=== PATIENT | male | born 1995 | race Two or more races ===

== ENCOUNTER 2024-09-07 03:19 | Emergency (ER) | payer MEDICAID, OTHER ==
[~2024-09-07] VITALS: Ht 170.2 cm; Wt 67.2 kg
--- NOTE | 2024-09-07 04:10 | ED.PDOC ---
History of Present Illness HPI Comments 28 y/o M, with a Hx of ESRD w/HD /W/ and HTN, presents with c/o nausea, vomiting, and abdominal pain for 1x day, today. Patient endorses on onset of symptoms, yesterday, morning that has been persisting since. He comments on pain being secondary to excessive vomiting, being unable to tolerate any food or l iquids before vomiting, immediately, and suspecting on consuming spoiled food after noticing his girlfriend becoming ill, initially, as well, before recovering on her own. Patient admits to completing his entire dialysis session on 09/03/24 and 09/06/24 without complications and his teacher education instructor being Tonya Salgado. He denies having any diarrhea, fever, chills, urinary symptoms or other associated symptoms or modifiers at this time. Upon arrival to ED, patient was found with an elevated blood pressure value of 201/130 amidst endorsement of medication compliancy history. Chief Complaint: Nausea/Vomiting Time Seen by MD: 03:50 Reviewed Notes: Nurses Notes, Medications, Allergies Allergies: Coded Allergies: NO KNOWN ALLERGIES (Unverified , 09/07/24) Information Source: Patient Mode of Arrival: Ambulatory Severity: Moderate Timing: Days Duration: Since onset Prehospital treatment: None Past Medical History PAST MEDICAL HISTORY: ESRD (w/HD on //), HTN Surgical History (Other): left AV fistula Family History Family History: Unknown Social History Smoker: Non-Smoker Alcohol: Denies ETOH Use Drugs: Denies Drug Use Lives In: Home Gastrointestinal: reports: abdominal pain, nausea, vomiting All Other Systems: Reviewed and Negative (negative unless otherwise stated above or in HPI) Physical Exam General Appearance: No Apparent Distress, Normal HEENT: Normal ENT Inspection, Pharynx Normal, TMs Normal Neck: Full Range of Motion, Non-Tender, Normal, Normal Inspection Respiratory: Chest Non-Tender, Lungs Clear, No Accessory Muscle Use, No Respiratory Distress, Normal Breath Sounds Cardiovascular: No Edema, No JVD, No Murmur, No Gallop, Normal Peripheral Pulses, Regular Rate/Rhythm Breast Exam: Deferred Gastrointestinal: No Organomegaly, Non Tender, No Pulsatile Mass, Normal Bowel Sounds, Soft Genitalia: Deferred Pelvic: Deferred Rectal: Deferred Extremities: No calf tenderness, Normal capillary refill, Normal inspection, Normal range of motion, Non-tender, No pedal edema, Other (AV fistula in left arm) Musculoskeletal : Apperance: Normal Neurologic: Alert, supervising chef II-XII nml as Tested, No Motor Deficits, Normal Affect, Normal Mood, No Sensory Deficits Cerebellar Function: Normal Reflexes: Normal Skin: Dry, Normal Color, Warm Lymphatic: No Adenopathy Was a procedure done? Was a procedure done?: No Differential Dx Considerations may include: gastritis, gastroenteritis, spoiled food, viral syndrome, HTN emergency, HTN essential X-Ray, Labs, Meds, VS Vital Signs Date Time Temp Pulse Resp B/P (MAP) Pulse Ox O2 Delivery O2 Flow Rate FiO2 09/07/24 04:34 143/107 09/07/24 04:12 98.4 76 18 143/107 (119) 97 98.4 09/07/24 04:12 76 18 97 Room Air* 0 21 09/07/24 03:41 98.8 90 18 201/130 (153) 98 Lab Test 09/07/24 04:16 09/07/24 04:14 Range/Units White Blood Count 7.6 4.4-10.8 10^3/uL Red Blood Count 4.24 L 4.5-5.90 10^6/uL Hemoglobin 13.4 L 13.5-17.5 g/dL Hematocrit 39.6 L 41.0-53.0 % Mean Corpuscular Volume 93.5 80.0-100.0 fL Mean Corpuscular Hemoglobin 31.5 28.0-32.0 pg Mean Corpuscular Hemoglobin Concent 33.7 32.0-36.0 g/dL Red Cell Distribution Width 16.4 H 11.8-14.3 % Platelet Count 158 140-450 10^3/uL Mean Platelet Volume 7.5 6.9-10.8 fL Neutrophils (%) (Auto) 90.9 H 37.0-80.0 % Lymphocytes (%) (Auto) 3.9 L 10.0-50.0 % Monocytes (%) (Auto) 2.6 0.0-12.0 % Eosinophils (%) (Auto) 2.6 0.0-7.0 % Basophils (%) (Auto) 0.0 0.0-2.0 % Neutrophils # (Auto) 6.9 1.6-8.6 10 ^3/uL Lymphocytes # (Auto) 0.3 L 0.4-5.4 10 ^3/uL Monocytes # (Auto) 0.2 0-1.3 10 ^3/uL Eosinophils # (Auto) 0.2 0-0.8 10 ^3/uL Basophils # (Auto) 0 0-0.2 10 ^3/uL Nucleated Red Blood Cells 0.1 % Sodium Level 139 136-145 mmol/L Potassium Level 4.7 3.5-5.1 mmol/L Chloride Level 97 L 98-107 mmol/L Carbon Dioxide Level 32 H 20-31 mmol/L Anion Gap 10 5-15 Blood Urea Nitrogen 41 H 9-23 mg/dL Creatinine 9.81 H 0.700-1.30 mg/dL Glomerular Filtration Rate Calc 7 >90 mL/min BUN/Creatinine Ratio 4.2 L 10.0-20.0 Serum Glucose 106 74-106 mg/dL Calcium Level 9.6 8.7-10.4 mg/dL Total Bilirubin 0.6 0.2-1.0 mg/dL Aspartate Amino Transferase (AST) 15 13-40 U/L Alanine Aminotransferase (ALT) 13 7-40 U/L Alkaline Phosphatase 114 46-116 U/L Total Protein 6.7 5.7-8.2 g/dL Albumin 4.7 3.2-4.8 g/dL B-Type Natriuretic Peptide 959.24 0-100 pg/mL Current Medications Medications (Trade) Dose Ordered Sig/Lb Route Start Time Stop Time Status Last Admin Ondansetron HCl (Zofran) 4 mg ONCE ONCE IV 09/07/24 04:15 09/07/24 04:16 DC 09/07/24 04:35 Acetaminophen (Tylenol Tablet) 650 mg ONCE ONCE PO 09/07/24 04:15 09/07/24 04:16 DC 09/07/24 04:38 Famotidine (Pepcid Injection) 20 mg ONCE ONCE IV 09/07/24 04:15 09/07/24 04:16 DC 09/07/24 04:35 Hydralazine HCl (Apresoline Injection) 20 mg ONCE ONCE IV 09/07/24 04:15 09/07/24 04:16 DC 09/07/24 04:[address] [address] Ph: [phone] DIAGNOSTIC IMAGING Diagnostic Imaging Report : [id number] Signed PATIENT: UBALDO CHAND ACCT: [id number] UNIT: [id number] : 1995 LOC: ER ROOM / BED: / AGE / SEX: 28 / M ADM STATUS: REG ER SERVICE 1 ORDERING PHYSICIAN: SALLIE GUTHRIE MD PROCEDURE(s): CXRP - CHEST PORTABLE REASON: n/v, sob ORDER NUMBER(s): [id number], ACCESSION NUMBER(s): [id number] EXAM: XY CHEST PORTABLE Indication: n/v, sob Technique: Single frontal view of the chest was obtained Comparison: None FINDINGS: Lines and Tubes: None Lungs: No focal consolidation. Pleura: No effusion. No pneumothorax. Cardiomediastinal contours: Unremarkable Bones: No acute osseous abnormality. IMPRESSION: No acute cardiopulmonary disease. ATED BY: GINGER CONSTANTINO MD DICTATED DATE/TIME: 09/07/24439 SIGNED BY: GINGER CONSTANTINO MD SIGNED DATE/TIME: 09/07/24439 CC: Time of 1ST Reevaluation: 04:20 Reevaluation 1ST: Unchanged Patient Education/Counseling: Diagnosis, Treatment Family Education/Counseling: No Family Present Additional Information The following tests were ordered, and results were reviewed by me: CXR, CMP, CBC, BNP I reviewed and agreed with the following test results read by other providers: CXR I discussed treatment and results with medical personnel Departure 1 Departure Time of Disposition: 05:27 (Patient with hypertensive urgency, tactile nausea and vomiting generalized weakness. Patient reports having full dialysis. We will admit patient for further workup) Impression: Primary Impression: Projectile vomiting with nausea Additional Impressions: Hypertensive urgency Generalized weakness Hemodialysis patient Disposition: ADMITTED INPATIENT Admit to: Med Surg Condition: Serious Critical Care Note Critical Care Time?: No Stability Stability form required: No Heart Score Heart Score: Heart Score Response (Comments) Value History N/A 0 EKG N/A 0 Age N/A 0 Risk Factors N/A 0 Troponin N/A 0 Total 0 I personally scribed for SALLIE GUTHRIE MD ([email or web address]) on 09/07/24 at 04:10. Electronically submitted by Gabe Abad ([email or web address]). I personally scribed for SALLIE GUTHRIE MD ([email or web address]) on 09/07/24 at 04:11. Electronically submitted by Gabe Abad ([email or web address]). I personally scribed for SALLIE GUTHRIE MD ([email or web address]) on 09/07/24 at 05:15. Electronically submitted by Gabe Abad ([email or web address]). SALLIE GUTHRIE MD Sep 07, 2024 04:10
[2024-09-07 04:12] VITALS: PULSE 76; RESP 18; O2SAT 97
[2024-09-07 04:29] LABS: Basophils # (auto) 0 10 ^3/uL (0-0.2); Eosinophils # (auto) 0.2 10 ^3/uL (0-0.8); Eosinophils % (auto) 2.6 % (0.0-7.0); Hematocrit 39.6 % (41.0-53.0); Hemoglobin 13.4 g/dL (13.5-17.5); Lymphocytes # (auto) 0.3 10 ^3/uL (0.4-5.4); Lymphocytes % (auto) 3.9 % (10.0-50.0); Mean Corpuscular Hemoglobin 31.5 pg (28.0-32.0); Mean Corpuscular Hgb Conc. 33.7 g/dL (32.0-36.0); Mean Corpuscular Volume 93.5 fL (80.0-100.0); Monocytes # (auto) 0.2 10 ^3/uL (0-1.3); Monocytes % (auto) 2.6 % (0.0-12.0); Neutrophils # (auto) 6.9 10 ^3/uL (1.6-8.6); Neutrophils % (auto) 90.9 % (37.0-80.0); Nucleated Red Blood Cells % 0.1 %; Platelet Count (auto) 158 10^3/uL (140-450); Red Blood Cells 4.24 10^6/uL (4.5-5.90); Red Cell Distribution Width 16.4 % (11.8-14.3); White Blood Cell 7.6 10^3/uL (4.4-10.8)
[2024-09-07] MEDS: hydrALAZINE HCL 20 MG/ML VL IV ONE (04:34)
[2024-09-07] MEDS: ONDANSETRON HCL 4 MG/2 ML VIAL IV ONE (04:35)
[2024-09-07] MEDS: FAMOTIDINE (10MG/ML) 2ML VL IV ONE (04:35)
[2024-09-07] MEDS: ACETAMINOPHEN 325 MG TAB PO ONE (04:38)
--- NOTE | 2024-09-07 04:42 | DVH ---
EXAM: XY CHEST PORTABLE Indication: n/v, sob Technique: Single frontal view of the chest was obtained Comparison: None FINDINGS: Lines and Tubes: None Lungs: No focal consolidation. Pleura: No effusion. No pneumothorax. Cardiomediastinal contours: Unremarkable Bones: No acute osseous abnormality. IMPRESSION: No acute cardiopulmonary disease.
[2024-09-07 04:45] LABS: Alanine Aminotransferase 13 U/L (7-40); Albumin 4.7 g/dL (3.2-4.8); Alkaline Phosphatase 114 U/L (46-116); Anion Gap 10 (5-15); Aspartate Aminotransferase 15 U/L (13-40); BUN/Creatinine Ratio 4.2 (10.0-20.0); Bilirubin, Total 0.6 mg/dL (0.2-1.0); Calcium 9.6 mg/dL (8.7-10.4); Glucose 106 mg/dL (74-106); Potassium 4.7 mmol/L (3.5-5.1); Sodium 139 mmol/L (136-145); Total Protein 6.7 g/dL (5.7-8.2)
[2024-09-07 04:49] LABS: Blood Urea Nitrogen 41 mg/dL (9-23); Carbon Dioxide 32 mmol/L (20-31); Chloride 97 mmol/L (98-107)
[2024-09-07 07:31] VITALS: BP 152/96; PULSE 76; RESP 18; TEMP 98.1; O2SAT 98
== END 2024-09-07 07:46 | disposition left against medical advice (07) ==
LOC: ER 03:19
DX: R11.12 Projectile vomiting (principal); R11.0 Nausea; I16.0 Hypertensive urgency; I12.0 Hypertensive chronic kidney disease with stage 5 chronic kidney disease or end stage renal disease; N18.6 End stage renal disease; Z99.2 Dependence on renal dialysis
CPT/HCPCS: 36415; 71045; 80053; 83880; 85025; 96374; 96375; 99284; J0360; J2405; J3490

== ENCOUNTER 2024-09-11 08:21 | Inpatient (IN) | payer MEDICAID ==
[~2024-09-11] VITALS: Ht 170.2 cm; Wt 67.0 kg
--- NOTE | 2024-09-11 08:49 | ED.PDOC ---
General HPI Comments 28 year old male presents to the ED with chief complaint of penile bleeding. Patient reports that he had finished dialysis this morning when he had noticed blood coming out of his penis afterwards at home. Patient relays that due to his history of ESRD, he is unable to produce urine. Patient states he has some discomfort to his penis as well. Patient notes that he has also been experiencing unrelated sore throat for the past few days. Patient reports that he had a similar episode of penile bleeding 2 months ago, but was much milder. Patient denies any urine output, abdominal pain, fever, chills, or testicular swelling. Chief Complaint: Penile Problem Time Seen by MD: 08:49 Reviewed notes: Nurses Notes, Medications, Allergies Allergies: Coded Allergies: NO KNOWN ALLERGIES (Unverified , 09/07/24) Information Source: Patient Mode of Arrival: Ambulatory Severity: Moderate Inability to void: Complete Timing: Hours Duration: Since onset Prehospital treatment: None Onset: Spontaneous Symptoms: Hematuria History of: Other (ESRD) Location: None Penile discharge: None Modifying factors: None associated signs and symptoms: Hematuria Past Medical History PAST MEDICAL HISTORY: ESRD, HTN Surgical History: Denies all surgeries Family History Family History: Unknown Social History Smoker: Non-Smoker Alcohol: Denies ETOH Use Drugs: Denies Drug Use Lives In: Home Constitutional: denies: chills, diaphoresis, fatigue, fever, malaise, sweats, weakness, others EENTM: denies: blurred vision, double vision, ear bleeding, ear discharge, ear drainage, ear pain, ear ringing, eye pain, eye redness, hearing loss, mouth pain, mouth swelling, nasal discharge, nose bleeding, nose congestion, nose pain, photophobia, tearing, throat pain, throat swelling, voice changes, others Respiratory: denies: cough, hemoptysis, orthopnea, SOB at rest, shortness of breath, SOB with excertion, stridor, wheezing, others Cardiovascular: denies: chest pain, dizzy spells, diaphoresis, Dyspnea on exertion, edema, irregular heart beat, left arm pain, lightheadedness, palpitations, PND, syncope, others Gastrointestinal: denies: abdomen distended, abdominal pain, blood streaked bowels, constipated, diarrhea, dysphagia, difficulty swallowing, hematemesis, melena, nausea, poor appetite, poor fluid intake, rectal bleeding, rectal pain, vomiting, others Genitourinary: reports: hematuria, pain; denies: burning, dysuria, flank pain, frequency, incontinence, penile discharge, penile sore, testicle pain, testicle swelling, urgency, others Neurological: denies: dizziness, fainting, headache, left sided numbness, left sided weakness, numbness, paresthesia, pre-existing deficit, right sided numbness, right sided weakness, seizure, speech problems, tingling, tremors, weakness, others Musculoskeletal: denies: back pain, gout, joint pain, joint swelling, muscle pain, muscle stiffness, neck pain, others Integumetry: denies: bruises, change in color, change in hair/nails, dryness, laceration, lesions, lumps, rash, wounds, others Allergic/Immunocompromised: denies: Difficulty Healing, Frequent Infections, Hives, Itching, others Hematologic/Lymphatic: denies: anemia, blood clots, easy bleeding, easy bruising, swollen glands, others Endocrine: denies: excessive hunger, excessive sweating, excessive thirst, excessive urination, flushing, intolerance to cold, intolerance to heat, unexplained weight gain, unexplained weight loss, others Psychiatric: denies: anxiety, bipolar disorder, depression, hopeless, panic disorder, schizophrenia, sleepless, suicidal, others All Other Systems: Reviewed and Negative Physical Exam General Appearance: No Apparent Distress, Normal HEENT: Normal ENT Inspection, PERRL/EOMI, Pharyngeal Erythema Neck: Full Range of Motion, Lymphadenopathy (R), Lymphadenopathy (L), Non- Tender, Normal, Normal Inspection Respiratory: Chest Non-Tender, Lungs Clear, No Accessory Muscle Use, No Respiratory Distress, Normal Breath Sounds Cardiovascular: No Edema, No JVD, No Murmur, No Gallop, Normal Peripheral P ulses, Regular Rate/Rhythm Breast Exam: Deferred Gastrointestinal: No Organomegaly, No Pulsatile Mass, Normal Bowel Sounds, Soft, Suprapubic, Tenderness Genitalia: Deferred Pelvic: Deferred Rectal: Deferred Extremities: No calf tenderness, Normal capillary refill, Normal inspection, Normal range of motion, Non-tender, No pedal edema Musculoskeletal : Apperance: Normal Neurologic: Alert, rn wellness II-XII nml as Tested, No Motor Deficits, Normal Affect, Normal Mood, No Sensory Deficits Cerebellar Function: Normal Reflexes: Normal Skin: Dry, Normal Color, Warm Peripheral Pulses: 1+ carotid (R), 1+ carotid (L) Lymphatic: No Adenopathy Was a procedure done? Was a procedure done?: No Differential Diagnosis Kidney stone (Female): N/A Kidney stone (Male): Pyelonephritis, Renal failure, Renal infarction, Urinary tract infection Penile/Scrotal: Prostatitis, Urolithiasis Urinary Problem (Male): Bladder Outlet, Prostatitis, Plelonephritis, Renal Failure, Urethritis, Urinary Retention, Urolithiasis, UTI Urinary Problem (Female): N/A X-Ray, Labs, Meds, VS Vital Signs Date Time Temp Pulse Resp B/P (MAP) Pulse Ox O2 Delivery O2 Flow Rate FiO2 09/11/24 11:11 190/117 09/11/24 09:11 82 16 98 Room Air* 0 21 09/11/24 09:10 82 18 98 Room Air 09/11/24 09:10 98.0 82 18 164/91 (115) 98 98.0 09/11/24 08:30 98.0 97 18 169/107 (127) 97 166/102 (123) Lab Test 09/11/24 09:47 09/11/24 09:27 Range/Units White Blood Count 3.5 #L 4.4-10.8 10^3/uL Red Blood Count 4.35 L 4.5-5.90 10^6/uL Hemoglobin 13.4 L 13.5-17.5 g/dL Hematocrit 40.5 L 41.0-53.0 % Mean Corpuscular Volume 93.1 80.0-100.0 fL Mean Corpuscular Hemoglobin 30.8 28.0-32.0 pg Mean Corpuscular Hemoglobin Concent 33.1 32.0-36.0 g/dL Red Cell Distribution Width 15.9 H 11.8-14.3 % Platelet Count 150 140-450 10^3/uL Mean Platelet Volume 7.8 6.9-10.8 fL Neutrophils (%) (Auto) 53.6 37.0-80.0 % Lymphocytes (%) (Auto) 23.7 10.0-50.0 % Monocytes (%) (Auto) 12.8 H 0.0-12.0 % Eosinophils (%) (Auto) 9.0 H 0.0-7.0 % Basophils (%) (Auto) 0.9 0.0-2.0 % Neutrophils # (Auto) 1.9 1.6-8.6 10 ^3/uL Lymphocytes # (Auto) 0.8 0.4-5.4 10 ^3/uL Monocytes # (Auto) 0.4 0-1.3 10 ^3/uL Eosinophils # (Auto) 0.3 0-0.8 10 ^3/uL Basophils # (Auto) 0 0-0.2 10 ^3/uL Nucleated Red Blood Cells 0.1 % Sodium Level 138 136-145 mmol/L Potassium Level 3.8 3.5-5.1 mmol/L Chloride Level 95 L 98-107 mmol/L Carbon Dioxide Level 32 H 20-31 mmol/L Anion Gap 11 5-15 Blood Urea Nitrogen 24 H 9-23 mg/dL Creatinine 7.03 #H 0.700-1.30 mg/dL Glomerular Filtration Rate Calc 10 >90 mL/min BUN/Creatinine Ratio 3.4 L 10.0-20.0 Serum Glucose 135 H 74-106 mg/dL Calcium Level 9.8 8.7-10.4 mg/dL Magnesium Level 2.4 1.6-2.6 mg/dL Group A Streptococcus Rapid Negative Current Medications Medications (Trade) Dose Ordered Sig/Lb Route Start Time Stop Time Status Last Admin Sodium Chloride 1,000 ml @ 150 mls/hr Q6H40M ONCE IV 09/11/24 09:30 09/11/24 16:09 09/11/24 09:39 Acetaminophen (Tylenol Tablet) 650 mg ONCE ONCE PO 09/11/24 11:00 09/11/24 11:01 DC 09/11/24 10:56 Clonidine HCl (Catapres Tablet) 0.1 mg ONCE ONCE PO 09/11/24 11:15 09/11/24 11:16 DC 09/11/24 11:11 Ceftriaxone Sodium 50 ml @ 100 mls/hr ONCE ONCE IV 09/11/24 12:30 09/11/24 12:59 DC 09/11/24 12:30 Chest XR: FINDINGS: LUNGS AND PLEURAL SPACES: Unremarkable. No consolidation. No pneumothorax. HEART: Unremarkable. No cardiomegaly. MEDIASTINUM: Unremarkable. Normal mediastinal contour. BONES/JOINTS: Unremarkable. No acute fracture. OTHER FINDINGS: . None. . IMPRESSION: No acute cardiopulmonary process. CT Abd/Pel W/ IV: Findings: Lung Bases: No acute or significant lung base finding. Normal heart size. No pleural or pericardial effusion. Liver: The liver is normal in size. No focal lesions. Normal hepatic vascular enhancement. Gallbladder and biliary Tree: Unremarkable Spleen: Unremarkable Pancreas: The pancreas is normal in appearance without focal lesions or abnormal enhancement. Adrenal Glands: Unremarkable Kidneys: Severe atrophic changes of the kidneys bilaterally. Innumerable small cysts, chronic in nature of both kidneys. 4 cm left upper pole renal cyst. Bladder: Unremarkable Bowel: Small hiatal hernia. Small bowel and colon are normal in caliber and distribution. The appendix is not visualized; however, no secondary findings of acute appendicitis identified. Stomach distended with fluid. Ascites: Absent Lymphadenopathy: No mesenteric, retroperitoneal or periportal lymphadenopathy. Abdominal wall and Mesentery: Edematous changes in the subcutaneous soft tissues and mesenteric fat consistent with probable renal failure. Vasculature: The visualized abdominal aorta is normal in size and caliber. Abdominal and pelvic vessels demonstrate normal enhancement. Mild vascular calcification the order without aneurysm. Pelvic Organs: Unremarkable Musculoskeletal: No aggressive focal bony lesions, acute fractures or dislocation. IMPRESSION: 1. Severe atrophic changes both kidneys with innumerable small cysts bilaterally. 2. Vascular calcification minimal in degree which is quite unusual at this young age. 3. Edematous changes of the subcutaneous soft tissues and mesenteric fat suggestive of marked renal impairment. X-Ray, Labs, Meds, VS Comment Course in the emergency department eventful patient was at the dialysis center and started having gross hematuria usually does not have any urine Blood pressure was also uncontrolled Chest x-ray is normal CT abdomen and pelvis shows atrophic kidneys hiatal hernia no bladder pathology and no prostate pathology CBC normal BNP GFR at 10 Magnesium 2.4 Strep pharyngitis negative Patient will be admitted for further care Consultation with the Urology Patient eloped we will try to bring him back patient is back and he will be admitted Images Reviewed?: Images reviewed and evaluated by me Time of 1ST Reevaluation: 09:49 Reevaluation 1ST: Unchanged Time of 2ND Reevaluation: 12:09 Reevaluation 2ND: Unchanged Patient Education/Counseling: Diagnosis, Treatment, Prognosis Family Education/Counseling: Diagnosis, Treatment, Prognosis, No Family Present Departure 1 Departure Time of Disposition: 12:12 Impression: Primary Impression: End stage renal failure on dialysis Additional Impressions: Uncontrolled hypertension Gross hematuria Pharyngitis Ruled Out: Bladder carcinoma Disposition: ADMITTED INPATIENT Admit to: Med Surg Condition: Fair Critical Care Note Critical Care Time?: No Stability Stability form required: Yes Unstable for transfer: Requires medication (Requires Med for stabilization) Heart Score Heart Score: Heart Score Response (Comments) Value History Slightly Suspicious 0 EKG N/A 0 Age <45 0 Risk Factors 1 or 2 risk factors 1 Troponin N/A 0 Total 1 I personally scribed for RICKI SANTOYO MD ([email or web address]) on 09/11/24 at 08:49. Electronically submitted by Bandar Sullivan ([email or web address]). I personally scribed for RICKI SANTOYO MD ([email or web address]) on 09/11/24 at 09:25. Electronically submitted by Bandar Sullivan ([email or web address]). I personally scribed for RICKI SANTOYO MD ([email or web address]) on 09/11/24 at 10:38. Electronically submitted by Bandar Sullivan ([email or web address]). I personally scribed for RICKI SANTOYO MD ([email or web address]) on 09/11/24 at 10:43. Electronically submitted by Bandar Sullivan ([email or web address]). RICKI SANTOYO MD Sep 11, 2024 08:49
[2024-09-11 09:11] VITALS: PULSE 82; RESP 16; O2SAT 98
[2024-09-11] MEDS: SODIUM CHLORIDE 0.9% 250 ML IV ONE (09:38)
[2024-09-11] MEDS: SODIUM CHLORIDE 0.9% 1,000 ML IV ONE (09:39)
[2024-09-11] MEDS: IOHEXOL 300 MG/ML 100ML BOTTLE IJ ONE (10:16)
--- NOTE | 2024-09-11 10:34 | DVH ---
EXAM: XR Chest, 2 Views CLINICAL INDICATION: Gross hematuria dialysis patient check prostate and bladder TECHNIQUE: Frontal and lateral views of the chest. COMPARISON: None FINDINGS: LUNGS AND PLEURAL SPACES: Unremarkable. No consolidation. No pneumothorax. HEART: Unremarkable. No cardiomegaly. MEDIASTINUM: Unremarkable. Normal mediastinal contour. BONES/JOINTS: Unremarkable. No acute fracture. OTHER FINDINGS: . None. . IMPRESSION: No acute cardiopulmonary process.
[2024-09-11 10:37] LABS: Basophils # (auto) 0 10 ^3/uL (0-0.2); Basophils % (auto) 0.9 % (0.0-2.0); Eosinophils # (auto) 0.3 10 ^3/uL (0-0.8); Hematocrit 40.5 % (41.0-53.0); Hemoglobin 13.4 g/dL (13.5-17.5); Lymphocytes # (auto) 0.8 10 ^3/uL (0.4-5.4); Lymphocytes % (auto) 23.7 % (10.0-50.0); Mean Corpuscular Hemoglobin 30.8 pg (28.0-32.0); Mean Corpuscular Hgb Conc. 33.1 g/dL (32.0-36.0); Mean Corpuscular Volume 93.1 fL (80.0-100.0); Monocytes # (auto) 0.4 10 ^3/uL (0-1.3); Monocytes % (auto) 12.8 % (0.0-12.0); Neutrophils # (auto) 1.9 10 ^3/uL (1.6-8.6); Neutrophils % (auto) 53.6 % (37.0-80.0); Nucleated Red Blood Cells % 0.1 %; Platelet Count (auto) 150 10^3/uL (140-450); Red Blood Cells 4.35 10^6/uL (4.5-5.90); Red Cell Distribution Width 15.9 % (11.8-14.3); White Blood Cell 3.5 10^3/uL (4.4-10.8)
--- NOTE | 2024-09-11 10:39 | DVH ---
Exam: CT CT AB PEL WITH IV CON ONLY History: Gross hematuria on an in uric patient possible bladder or pr COMPARISON: None Technique: Multidetector spiral CT of the abdomen and pelvis was performed from lung bases to pubic s ymphysis. Intravenous contrast was administered during this examination. Portal venous imaging was obtained. Axial, coronal and sagittal multiplanar reformats were performed by the technologist on a separate workstation. Radiation Dose : 1. Abdomen/Pelvis: CTDIvol [CTDIvol]mGy, DLP 369.61 mGy*cm. CONTRAST: Type of contrast: Omnipaque 300 Contrast injected: 100 ml Contrast ingested: 0 ml Findings: Lung Bases: No acute or significant lung base finding. Normal heart size. No pleural or pericardial effusion. Liver: The liver is normal in size. No focal lesions. Normal hepatic vascular enhancement. Gallbladder and biliary Tree: Unremarkable Spleen: Unremarkable Pancreas: The pancreas is normal in appearance without focal lesions or abnormal enhancement. Adrenal Glands: Unremarkable Kidneys: Severe atrophic changes of the kidneys bilaterally. Innumerable small cysts, chronic in na ture of both kidneys. 4 cm left upper pole renal cyst. Bladder: Unremarkable Bowel: Small hiatal hernia. Small bowel and colon are normal in caliber and distribution. The append ix is not visualized; however, no secondary findings of acute appendicitis identified. Stomach disten ded with fluid. Ascites: Absent Lymphadenopathy: No mesenteric, retroperitoneal or periportal lymphadenopathy. Abdominal wall and Mesentery: Edematous changes in the subcutaneous soft tissues and mesenteric fat c onsistent with probable renal failure. Vasculature: The visualized abdominal aorta is normal in size and caliber. Abdominal and pelvic vess els demonstrate normal enhancement. Mild vascular calcification the order without aneurysm. Pelvic Organs: Unremarkable Musculoskeletal: No aggressive focal bony lesions, acute fractures or dislocation. IMPRESSION: 1. Severe atrophic changes both kidneys with innumerable small cysts bilaterally. 2. Vascular calcification minimal in degree which is quite unusual at this young age. 3. Edematous changes of the subcutaneous soft tissues and mesenteric fat suggestive of marked renal i mpairment. Radiation optimization: All CT scans at this facility use at least one of these dose optimization jack hniques: Automated exposure control mA and/or kV adjustment per patient size (includes targeted exams where dose is matched to clinical indication) or iterative reconstruction.
[2024-09-11 10:42] LABS: Rapid Strep A Screen-Throat Negative
[2024-09-11 10:53] LABS: Potassium 3.8 mmol/L (3.5-5.1); Sodium 138 mmol/L (136-145)
[2024-09-11 10:54] LABS: Anion Gap 11 (5-15); Calcium 9.8 mg/dL (8.7-10.4)
[2024-09-11] MEDS: ACETAMINOPHEN 325 MG TAB PO ONE (10:56)
[2024-09-11 10:57] LABS: Carbon Dioxide 32 mmol/L (20-31); Chloride 95 mmol/L (98-107)
[2024-09-11 10:59] LABS: BUN/Creatinine Ratio 3.4 (10.0-20.0)
[2024-09-11 11:00] LABS: Blood Urea Nitrogen 24 mg/dL (9-23); Glucose 135 mg/dL (74-106); Magnesium 2.4 mg/dL (1.6-2.6)
[2024-09-11] MEDS: cloNIDine HCL 0.1 MG TAB PO ONE (11:11)
[2024-09-11] MEDS: cefTRIAXone 1GM/50ML D5W 50 ML IV ONE (12:30)
[2024-09-11] MEDS ORDERED: DOCUSATE SOD 100 MG CAP PO PRN (13:00)
[2024-09-11] MEDS ORDERED: hydrALAZINE HCL 20 MG/ML VL IV PRN ×2 (13:00→15:00)
[2024-09-11] MEDS ORDERED: HYDROcodone-ACET 5/325MG TAB PO PRN (13:00)
[2024-09-11] MEDS ORDERED: ONDANSETRON HCL 4 MG/2 ML VIAL IV PRN (13:00)
--- NOTE | 2024-09-11 13:01 | DVHHP2 ---
Admitting Diagnosis: Hematuria History of Present Illness 28 year old male presents to the ED with chief complaint of penile bleeding. Patient reports that he had finished dialysis this morning when he had noticed blood coming out of his penis afterwards at home. Patient relays that due to his history of ESRD, he is unable to produce urine. Patient states he has some discomfort to his penis as well. Patient notes that he has also been experiencing unrelated sore throat for the past few days. Patient reports that he had a similar episode of penile bleeding 2 months ago, but was much milder. Patient denies any urine output, abdominal pain, fever, chills, or testicular swelling. PAST MEDICAL HISTORY: ESRD, HTN Surgical History: Denies all surgeries Family History Family History: Unknown Social History Smoker: Non-Smoker Alcohol: Denies ETOH Use Drugs: Denies Drug Use Lives In: Home Allergies: Coded Allergies: NO KNOWN ALLERGIES (Unverified , 09/07/24) Current Medications Current Medications Medications (Trade) Dose Ordered Sig/Lb Route PRN Reason Start Time Stop Time Status Last Admin Sodium Chloride (Saline Lock Ns) 10 ml Q8HR IV 09/11/24 14:00 Docusate Sodium (Colace Capsule) 100 mg BIDPRN PRN PO FOR CONSTIPATION 09/11/24 13:00 Acetaminophen (Tylenol Tablet) 650 mg Q6HP PRN PO PAIN SCALE 1-3 OR TEMP>100.4 09/11/24 13:00 Acetaminophen/ Hydrocodone Bitart ([place] 5/325MG Tab) 1 tab Q4HP PRN PO MODERATE PAIN (4-6 PAIN SCALE) 09/11/24 13:00 Ondansetron HCl (Zofran) 4 mg Q4HP PRN IV NAUSEA / VOMITING 09/11/24 13:00 Hydralazine HCl (Apresoline Injection) 10 mg Q6H PRN IV SBP > 165 09/11/24 13:00 Vital Signs Vital Signs Date Time Temp Pulse Resp B/P (MAP) Pulse Ox O2 Delivery O2 Flow Rate FiO2 09/11/24 11:11 190/117 09/11/24 09:11 82 16 98 Room Air* 0 21 09/11/24 09:10 98.0 98.0 Results Labs Test 09/11/24 09:47 09/11/24 09:27 Range/Units White Blood Count 3.5 #L 4.4-10.8 10^3/uL Red Blood Count 4.35 L 4.5-5.90 10^6/uL Hemoglobin 13.4 L 13.5-17.5 g/dL Hematocrit 40.5 L 41.0-53.0 % Mean Corpuscular Volume 93.1 80.0-100.0 fL Mean Corpuscular Hemoglobin 30.8 28.0-32.0 pg Mean Corpuscular Hemoglobin Concent 33.1 32.0-36.0 g/dL Red Cell Distribution Width 15.9 H 11.8-14.3 % Platelet Count 150 140-450 10^3/uL Mean Platelet Volume 7.8 6.9-10.8 fL Neutrophils (%) (Auto) 53.6 37.0-80.0 % Lymphocytes (%) (Auto) 23.7 10.0-50.0 % Monocytes (%) (Auto) 12.8 H 0.0-12.0 % Eosinophils (%) (Auto) 9.0 H 0.0-7.0 % Basophils (%) (Auto) 0.9 0.0-2.0 % Neutrophils # (Auto) 1.9 1.6-8.6 10 ^3/uL Lymphocytes # (Auto) 0.8 0.4-5.4 10 ^3/uL Monocytes # (Auto) 0.4 0-1.3 10 ^3/uL Eosinophils # (Auto) 0.3 0-0.8 10 ^3/uL Basophils # (Auto) 0 0-0.2 10 ^3/uL Nucleated Red Blood Cells 0.1 % Sodium Level 138 136-145 mmol/L Potassium Level 3.8 3.5-5.1 mmol/L Chloride Level 95 L 98-107 mmol/L Carbon Dioxide Level 32 H 20-31 mmol/L Anion Gap 11 5-15 Blood Urea Nitrogen 24 H 9-23 mg/dL Creatinine 7.03 #H 0.700-1.30 mg/dL Glomerular Filtration Rate Calc 10 >90 mL/min BUN/Creatinine Ratio 3.4 L 10.0-20.0 Serum Glucose 135 H 74-106 mg/dL Calcium Level 9.8 8.7-10.4 mg/dL Magnesium Level 2.4 1.6-2.6 mg/dL Group A Streptococcus Rapid Negative Primary Diagnosis Hematuria End-stage renal disease on hemodialysis Plan Unclear etiology of hematuria Check CT cystogram Urology consult for new onset hematuria Ceftriaxone 1 g q.day for possible UTI. Nephrology consult for hemodialysis NPO for now. Possible urological intervention cystoscopy Check CBC q.8 hours Hydralazine 10 mg q.6 hours p.r.n. for SBP greater than 165 Full code SCD for DVT prophylaxis PPI for GI prophylaxis NPO for possible procedure. If no procedure start renal diet Plan discussed with: Patient Problems List: (1) Hypertensive urgency Status: Acute (2) End stage renal failure on dialysis Status: Acute (3) Gross hematuria Status: Acute Date of Service: Sep 11, 2024 Billing Provider: KYLE RIVAS MD Common Visit Codes: [id number] INP/OBS CARE (HIGH) KYLE RIVAS MD Sep 11, 2024 13:01
[2024-09-11 14:14] LABS: INR 1.03 (0.9-1.15); Prothrombin Time 10.9 sec (9.3-11.8)
[2024-09-11] MEDS: SODIUM CHLOR 0.9% PF (SALINE LOCK) 10ML VIAL/SYR IV SCH (14:16)
--- NOTE | 2024-09-11 14:54 | DVHHP2 ---
Admitting Diagnosis: Hematuria History of Present Illness 28 year old male presents to the ED with chief complaint of penile bleeding. Patient reports that he had finished dialysis this morning when he had noticed blood coming out of his penis afterwards at home. Patient relays that due to his history of ESRD, he is unable to produce urine. Patient states he has some discomfort to his penis as well. Patient notes that he has also been experiencing unrelated sore throat for the past few days. Patient reports that he had a similar episode of penile bleeding 2 months ago, but was much milder. Patient denies any urine output, abdominal pain, fever, chills, or testicular swelling. PAST MEDICAL HISTORY: ESRD, HTN Surgical History: Denies all surgeries Family History Family History: Unknown Social History Smoker: Non-Smoker Alcohol: Denies ETOH Use Drugs: Denies Drug Use Lives In: Home Allergies: Coded Allergies: NO KNOWN ALLERGIES (Unverified , 09/07/24) Home Meds Reported Medications Omeprazole (Gnp Omeprazole) 20 Mg Tab, 40 MG PO DAILY, TAB 09/11/24 Carvedilol (Carvedilol) 6.25 Mg Tab, 6.25 MG PO Q12HR for 30 Days, MG 09/11/24 Cholecalciferol (VITAMIN D3) 2,000 Unit Tab, 2000 UNIT OR, TAB 09/11/24 Hydralazine Hcl (Hydralazine Hcl) 50 Mg Tab, 100 MG PO for 30 Days, MG 09/11/24 Nifedipine (Nifedipine Er) 90 Mg Tab, 1 TAB PO DAILY, #30 TAB 5 Refills 09/11/24 Clonidine Hydrochloride (Clonidine Hcl) 0.1 Mg Tab, 0.1 MG PO BID for 30 Days, MG 09/11/24 Calcium Acetate (Phosphate Bin (Calcium Acetate) 667 Mg Cap, 667 MG PO TIDWM for 30 Days, MG 09/11/24 Ferric Citrate (Auryxia) 210 Mg Tab, 210 MG PO, TAB 25 Losartan Potassium (Losartan Potassium) 100 Mg Tab, 100 MG PO DAILY for 30 Days, MG 09/11/24 Allopurinol (ZYLOPRIM TABLET) 100 Mg Tb, 1 TAB PO DAILY, #30 TAB 5 Refills 09/11/24 Current Medications Current Medications Medications (Trade) Dose Ordered Sig/Lb Route PRN Reason Start Time Stop Time Status Last Admin Sodium Chloride (Saline Lock Ns) 10 ml Q8HR IV 09/11/24 14:00 09/11/24 14:16 Docusate Sodium (Colace Capsule) 100 mg BIDPRN PRN PO FOR CONSTIPATION 09/11/24 13:00 Acetaminophen (Tylenol Tablet) 650 mg Q6HP PRN PO PAIN SCALE 1-3 OR TEMP>100.4 09/11/24 13:00 09/11/24 17:12 Acetaminophen/ Hydrocodone Bitart ([place] 5/325MG Tab) 1 tab Q4HP PRN PO MODERATE PAIN (4-6 PAIN SCALE) 09/11/24 13:00 Ondansetron HCl (Zofran) 4 mg Q4HP PRN IV NAUSEA / VOMITING 09/11/24 13:00 Hydralazine HCl (Apresoline Injection) 10 mg Q6H PRN IV SBP > 165 09/11/24 13:00 Hydralazine HCl (Apresoline Tablet) 50 mg Q8H PO 09/11/24 15:00 09/11/24 15:06 Isosorbide Mononitrate (Imdur Er Tablet) 60 mg DAILY PO 09/11/24 15:00 09/11/24 15:06 Hydralazine HCl (Apresoline Injection) 10 mg Q6HP PRN IV SBP>150 09/11/24 15:00 09/11/24 14:57 DC Labetalol HCl (Normodyne Tablet) 100 mg Q12HR PO 09/11/24 15:45 Vital Signs Vital Signs Date Time Temp Pulse Resp B/P (MAP) Pulse Ox O2 Delivery O2 Flow Rate FiO2 09/11/24 15:17 190/124 09/11/24 14:41 98.7 77 16 98 98.7 09/11/24 09:11 Room Air* 0 21 Physical Exam Generally-19 years old male, well nourished well developed. No apparent distress HEENT-atraumatic normocephalic Heart-regular rate and rhythm Lungs clear to auscultate Abdomen soft nontender nondistended Musculoskeletal-pedal edema no cyanosis Neuro-AO x3, no focal deficits Results Labs Test 09/11/24 13:18 09/11/24 09:47 09/11/24 09:27 Range/Units Prothrombin Time 10.9 9.3-11.8 sec Prothrombin Time INR 1.03 0.9-1.15 White Blood Count 3.5 #L 4.4-10.8 10^3/uL Red Blood Count 4.35 L 4.5-5.90 10^6/uL Hemoglobin 13.4 L 13.5-17.5 g/dL Hematocrit 40.5 L 41.0-53.0 % Mean Corpuscular Volume 93.1 80.0-100.0 fL Mean Corpuscular Hemoglobin 30.8 28.0-32.0 pg Mean Corpuscular Hemoglobin Concent 33.1 32.0-36.0 g/dL Red Cell Distribution Width 15.9 H 11.8-14.3 % Platelet Count 150 140-450 10^3/uL Mean Platelet Volume 7.8 6.9-10.8 fL Neutrophils (%) (Auto) 53.6 37.0-80.0 % Lymphocytes (%) (Auto) 23.7 10.0-50.0 % Monocytes (%) (Auto) 12.8 H 0.0-12.0 % Eosinophils (%) (Auto) 9.0 H 0.0-7.0 % Basophils (%) (Auto) 0.9 0.0-2.0 % Neutrophils # (Auto) 1.9 1.6-8.6 10 ^3/uL Lymphocytes # (Auto) 0.8 0.4-5.4 10 ^3/uL Monocytes # (Auto) 0.4 0-1.3 10 ^3/uL Eosinophils # (Auto) 0.3 0-0.8 10 ^3/uL Basophils # (Auto) 0 0-0.2 10 ^3/uL Nucleated Red Blood Cells 0.1 % Sodium Level 138 136-145 mmol/L Potassium Level 3.8 3.5-5.1 mmol/L Chloride Level 95 L 98-107 mmol/L Carbon Dioxide Level 32 H 20-31 mmol/L Anion Gap 11 5-15 Blood Urea Nitrogen 24 H 9-23 mg/dL Creatinine 7.03 #H 0.700-1.30 mg/dL Glomerular Filtration Rate Calc 10 >90 mL/min BUN/Creatinine Ratio 3.4 L 10.0-20.0 Serum Glucose 135 H 74-106 mg/dL Calcium Level 9.8 8.7-10.4 mg/dL Magnesium Level 2.4 1.6-2.6 mg/dL Group A Streptococcus Rapid Negative Primary Diagnosis Hematuria End-stage renal disease on hemodialysis Plan Unclear etiology of hematuria Patient states the hematuria improved Check CT cystogram Urology consult for new onset hematuria Ceftriaxone 1 g q.day for possible UTI. Nephrology consult for hemodialysis NPO for now. Possible urological intervention cystoscopy Check CBC q.8 hours Hydralazine 10 mg q.6 hours p.r.n. for SBP greater than 165 Full code SCD for DVT prophylaxis PPI for GI prophylaxis NPO for possible procedure. If no procedure start renal diet Plan discussed with: Patient Problems List: (1) End stage renal failure on dialysis Status: Acute (2) Uncontrolled hypertension Status: Acute (3) Hypertensive urgency Status: Acute (4) Hemodialysis patient Status: Acute Date of Service: Sep 11, 2024 Billing Provider: KYLE RIVAS MD Common Visit Codes: [id number] INP/OBS CARE (HIGH) KYLE RIVAS MD Sep 11, 2024 14:54
[2024-09-11] MEDS: hydrALAZINE HCL 25 MG TAB PO SCH (15:06)
[2024-09-11] MEDS: ISOSORBIDE MONONITRATE ER 60 MG TAB PO SCH (15:06)
[2024-09-11] MEDS: hydrALAZINE HCL 20 MG/ML VL IV ONE (15:14)
[2024-09-11] MEDS ORDERED: CARV6.2551 PO (16:39)
[2024-09-11] MEDS ORDERED: NIFE90TA75 PO (16:39)
[2024-09-11] MEDS ORDERED: ALL100T PO (16:39)
[2024-09-11] MEDS ORDERED: OMEP20TA PO (16:39)
[2024-09-11] MEDS ORDERED: CLON0.1T PO (16:39)
[2024-09-11] MEDS ORDERED: FERR1TAB17 PO (16:39)
[2024-09-11] MEDS ORDERED: HYDR50TA47 PO (16:39)
[2024-09-11] MEDS ORDERED: CALC667C PO (16:39)
[2024-09-11] MEDS ORDERED: CHOL20007 OR (16:39)
[2024-09-11] MEDS ORDERED: LOSA-535 PO (16:39)
[2024-09-11 17:00] VITALS: BP 172/115; PULSE 78; RESP 16; TEMP 98; O2SAT 99
[2024-09-11] MEDS: ACETAMINOPHEN 325 MG TAB PO PRN (17:12)
[2024-09-11] MEDS: LABETALOL HCL 200 MG TAB PO SCH (18:10)
== END 2024-09-11 19:40 | disposition left against medical advice (07) | DRG 468 ==
LOC: ER 08:21 → OVERFLOW 12:56
PROVIDERS: ADMIT Internal Medicine; ATTEND Internal Medicine
DX: R31.0 Gross hematuria (principal); I12.0 Hypertensive chronic kidney disease with stage 5 chronic kidney disease or end stage renal disease; N18.6 End stage renal disease; J02.9 Acute pharyngitis, unspecified; Z53.29 Procedure and treatment not carried out because of patient's decision for other reasons; Z99.2 Dependence on renal dialysis; Z79.899 Other long term (current) drug therapy
CPT/HCPCS: 36415; 71046; 74177; 80048; 83735; 85025; 85610; 87070; 87880; G0378